=== PATIENT | male | born 1970 | race Caucasian/White ===

== ENCOUNTER 2019-08-24 11:07 | Inpatient (IN) ==
[2019-08-24] MEDS ORDERED: NS 1,000 ML IV ONE (11:40)
[2019-08-24 12:14] LABS: BASO# 0.04 X1000 (0.0-0.2); BASO% 0.3 % (0.0-0.8); EOS# 0.14 X1000 (0.0-0.7); HEMATOCRIT 45.6 % (42.0-52.0); HEMOGLOBIN 16.2 g/dL (14.0-18.0); IMM GRAN# 0.06 X1000 (0.0-0.04); IMM GRAN% 0.4 % (0.0-0.5); LYMPH# 2.46 X1000 (1.2-3.4); LYMPH% 17.2 % (20.5-51.1); MCH 28.1 PG (27-31); MCHC 35.5 g/dL (33-37); MCV 79.2 FL (81-99); MONO# 0.92 X1000 (0.11-0.59); MONO% 6.4 % (1.7-9.3); MPV 13.3 FL (7.4-10.4); NEUT# 10.67 X1000 (1.4-6.5); NEUT% 74.7 % (42.2-75.2); PLT 180 X1000 (130-400); RBC 5.76 XMIL (4.7-6.1); RDW 13.2 % (11.5-14.5); WBC 14.29 X1000 (4.8-10.8)
--- NOTE | 2019-08-24 12:21 | Diag Imaging Result Doc PS360 ---
EXAM: CHEST-PORTABLE INDICATION: chest pain TECHNIQUE: One view COMPARISON: 05/05/2016 FINDINGS: The lungs are grossly clear. There is no discrete pleural fluid collection or pneumothorax. There are stable median sternotomy wires. There has been interval placement of an implanted defibrillator. The cardiomediastinal silhouette and central vasculature are unremarkable, otherwise. IMPRESSION: No evidence of acute pathology by plain radiograph. Electronically signed by Garcia Garcia 08/24/2019 12:19 PM
[2019-08-24 12:46] LABS: ALBUMIN 4.1 g/dL (3.5-5.0); CALCIUM 9.8 mg/dL (8.8-10.2); CREATININE 1.3 mg/dL (0.7-1.2); POTASSIUM 4.3 mmol/L (3.5-5.1); TOTAL BILIRUBIN 0.34 mg/dL (0.20-1.00); TOTAL PROTEIN 6.1 g/dL (6.3-8.3)
[2019-08-24] MEDS ORDERED: HUMULIN R IV ONE (13:57)
--- NOTE | 2019-08-24 15:41 | PROVIDER DOCUMENTATION ---
This chart was entered by Pallavi Garcia Scribe, acting as scribe for Sohail Mondragon DO. HPI-Chest Pain - General Stated Complaint: CP Time Seen by Provider: 08/24/19 11:10 Source: RN/ Allergies/Adverse Reactions: Patient Allergies Allergy/AdvReac Type Severity Reaction Status Date / Time codeine AdvReac Unknown Verified 08/24/19 12:00 Home Medications: Home Medication List Medication Instructions Recorded Confirmed Last Taken Type Aspirin [[place] Aspirin EC] 81 mg PO DAILY 02/06/14 02/06/14 02/06/14 History Gemfibrozil 600 mg PO DAILY 02/06/14 02/06/14 02/06/14 History Lorazepam 0.5 mg PO DAILY 02/06/14 02/06/14 02/06/14 History Nitroglycerin 0.4 mg PO DIRECTED 02/06/14 02/06/14 Unknown History Carvedilol 25 mg PO BID #0 02/09/14 02/06/14 02/06/14 Rx Hydrocodone Bit/Acetaminophen 1 tab PO DAILY #0 02/09/14 02/06/14 02/06/14 Rx [Hydrocodon-Acetaminophen 5-325] Insulin Human NPH [Humulin N] 22 unit SUBQ BID #0 vial 02/09/14 Unknown Rx Insulin Human NPH [Humulin N] 25 unit SUBQ BID #0 vial 02/09/14 Unknown Rx Insulin Regular, Human [Humulin R] 6 unit SQ ACS #1 vial 02/09/14 Unknown Rx Lovastatin 20 mg PO QHS #0 tablet 02/09/14 Unknown Rx Metformin [Glucophage] 1,000 mg PO BID #0 02/09/14 02/06/14 02/06/14 Rx Nicotine Patch [Nicoderm Patch] 14 mg TD DAILY PRN PRN #0 02/09/14 Unknown Rx patch.td24 - History of Present Illness-CP Nature of Presenting Problem: 48 yom c/o substernal cp this am while driving to mother's house to eat breakfast. pain is sharp, radiating down L arm and to back./ pt had 1 episode of vomiting and nausea and mild sob. pt sts pain is 9/10 when first started and felt similar to prev [place]. pt took 3 nitro at home w/little relief. ems enroute gave pt 3 81 ASA and pain is 3/10. hx of cabg, pacer/defib and stent. pt still smokes 1.5 ppd, not taking ASA regular and in on anticoagulant, unsure of name. Location: reports: substernal Chest Pain Radiation: reports: arms (L), back Quality of Pain: reports: sharp Severity in ED: mild Onset/Duration: this morning Timing: improving Context/Activities at Onset: reports: light activity (driving to moms home) Modifying Factors: improves with: nothing Associated Symptoms: reports: nausea, shortness of breath, vomiting (x1) Nitro Today/Relief: 0.4 mg x 3, provided at home Aspirin Treatment Today: 81 mg x 3, provided by EMS Prior Chest Pain/Cardiac Workup: reports: heart attack Similar Symptoms Previously?: Yes Review of Systems - Adult - REVIEW OF SYSTEMS - ADULT Constitutional: reports: no symptoms reported. denies: chills, fever, fatique Eyes: reports: no symptoms reported Ears, Nose, Mouth & Throat: reports: no symptoms reported Cardiovascular: reports: see HPI, chest pain. denies: edema, irregular heart rate, orthopnea, palpitations, PND Respiratory: reports: see HPI, shortness of breath (mild). denies: dyspnea on exertion, pleurisy, wheezing Gastrointestinal: reports: see HPI, nausea, vomiting (x1). denies: abdominal pain, hematemesis, diarrhea Genitourinary: reports: no symptoms reported Musculoskeletal: reports: see HPI, bone pain (L arm pain associated w/cp), back pain (associated w/cp). denies: joint pain, joint swelling, neck pain Integumentary: reports: no symptoms reported Neurological: reports: no symptoms reported Psychiatric: reports: no symptoms reported Endocrine: reports: no symptoms reported Hematologic/Lymphatic: reports: no symptoms reported Allergic/Immunologic: reports: no symptoms reported All Other Systems: Reviewed and Negative Past History - Adult - PAST MEDICAL HISTORY-ADULT Review of Records: reports: Nursing Assessment Review, Medications Reviewed, Social history reviewed & non-contributory. Major Childhood Illnesses: reports: denies history Cardiovascular: reports: [place], pacemaker Respiratory: reports: sleep apnea Gastrointestinal: reports: denies history Obstetrical/Gynecological: reports: denies history Genitourinary: reports: denies history Musculoskeletal: reports: denies history Neurological: reports: denies history Endocrine/Immune: reports: Diabetes Other Conditions: reports: denies history - PRIOR SURGERIES/PROCEDURES Surgical/Procedure History: reports: CABG, cardiac stent, pacemaker - PRIOR HOSPITALIZATIONS Prior Hospitalizations: reports: for similar symptoms - IMMUNIZATION STATUS Childhood Immunizations: See Nurse Assessment Flu Vaccine: See Nurse Assessment - FAMILY HISTORY Family History: reviewed, not pertinent - SOCIAL HISTORY Smoking: cigarettes, greater than 1 pack/day Provider spent 3-5 mins advising pt. on dangers of tobacco.: Discussed manners to quit use, and f/u contacts for add'l counseling. Substance Use: none/never Physical Exam-General - PHYSICAL EXAM-ADULT Initial Vital Signs Reviewed: Yes - CONSTITUTIONAL General Appearance: alert, no apparent distress. negative: lethargic, slow to respond, obtunded - EYES Eyes: PERRL/EOMI - HEAD, EARS, NOSE, MOUTH & THROAT HENMT: normocephalic/atraumatic, moist mucous membranes - NECK Neck: non-tender, full range of motion, supple, normal inspection - RESPIRATORY Respiratory: chest non-tender, lungs clear, normal breath sounds, no pleuratic chest pain, no respiratory distress, no accessory muscle use. negative: accessory muscle use, crackles, rhonchi, wheezing - CARDIOVASCULAR Cardiovascular: normal peripheral pulses, regular rate, rhythm, no edema, no gallop, no JVD, no murmur. negative: JVD, tachycardia, extra beats - GASTROINTESTINAL (ABDOMEN) Abdominal Exam: normal bowel sounds, non tender, soft - MUSCULOSKELETAL Back Exam: normal inspection Extremity: normal range of motion, non-tender, normal inspection - SKIN Integumentary: normal color, normal turgor, warm/dry - NEUROLOGIC Neurologic: technician trainee II-XII nml as tested, grossly normal, no motor/sensory deficits - PSYCHIATRIC Psych/Mental Status: normal mood/affect, normal thought content, normal thought process, oriented x 3 - HEART Score HEART Score: History: Highly Suspicious HEART Score: ECG: Non-Specific Repolarization Disturbance/LBBB/PM HEART Score: Age: 45-65 Years HEART Score: Risk Factors for Atherosclerotic Disease: > or = 3 Risk Factors or History of Atherosclerotic Disease HEART Score: Troponin: < or = Normal Limit Total HEART Score:: 6 Progress - PLAN OF CARE/RESULTS Progress/Plan/Lab Results: Vital Signs - 8 hr 08/24/19 11:20 Temperature 98.3 F Pulse Rate 99 H Respiratory Rate 18 Blood Pressure 106/84 O2 Sat by Pulse Oximetry 98 08/24/19 13:54 Influenza Screen - Final Nasopharyngeal Laboratory Results - last 24 hr 08/24/19 08/24/19 08/24/19 11:40 11:40 11:40 WBC RBC Hgb Hct MCV MCH MCHC RDW Std Deviation Plt Count MPV Immature Gran % (Auto) Neut % (Auto) Lymph % (Auto) Blaine % (Auto) Eos % (Auto) Baso % (Auto) Immature Gran # (Auto) Neut # (Auto) Lymph # (Auto) Blaine # (Auto) Eos # (Auto) Baso # (Auto) Sodium 128 L Potassium 4.3 Chloride 89 L Carbon Dioxide 21 L Anion Gap 18 BUN 38 H Creatinine 1.3 H Estimated GFR/1.73 m2 59 BUN/Creatinine Ratio 29 Glucose 534 H* Calculated Osmolality 290 Calcium 9.8 Total Bilirubin 0.34 AST 10 ALT 8 L Alkaline Phosphatase 105 Creatine Kinase 50 Troponin T High Sens 77 H Num-M-Qjxhoehbfeq Pept 1394 H Total Protein 6.1 L Albumin 4.1 Globulin 2.0 Albumin/Globulin Ratio 2.0 08/24/19 11:40 WBC 14.29 H RBC 5.76 Hgb 16.2 Hct 45.6 MCV 79.2 L MCH 28.1 MCHC 35.5 RDW Std Deviation 13.2 Plt Count 180 MPV 13.3 H Immature Gran % (Auto) 0.4 Neut % (Auto) 74.7 Lymph % (Auto) 17.2 L Blaine % (Auto) 6.4 Eos % (Auto) 1.0 Baso % (Auto) 0.3 Immature Gran # (Auto) 0.06 H Neut # (Auto) 10.67 H Lymph # (Auto) 2.46 Blaine # (Auto) 0.92 H Eos # (Auto) 0.14 Baso # (Auto) 0.04 Sodium Potassium Chloride Carbon Dioxide Anion Gap BUN Creatinine Estimated GFR/1.73 m2 BUN/Creatinine Ratio Glucose Calculated Osmolality Calcium Total Bilirubin AST ALT Alkaline Phosphatase Creatine Kinase Troponin T High Sens [id number] Pept Total Protein Albumin Globulin Albumin/Globulin Ratio Orders Category Date Time Status Finger Stick Blood Sugar (ED) DIRECTED Care 08/24/19 15:38 Active Isolation [Isolation Precautions Setup] NOW Care 08/24/19 13:41 Active NEWS Score 2-4:Order NEWS Lactate Series NOW Care 08/24/19 11:53 Active CHEST-PORTABLE [RAD] Stat Exams 08/24/19 11:23 Completed CBC WITH ELECTRONIC DIFF [HEME] Stat Lab 08/24/19 11:40 Completed CK PROFILE [SP CHEM] Stat Lab 08/24/19 11:40 Completed COMPREHENSIVE METABOLIC PANEL [CHEM] Stat Lab 08/24/19 11:40 Completed INFLUENZA SCREEN A/B Stat Lab 08/24/19 13:54 Completed LACTATE, PLASMA [CHEM] Lab 08/24/19 14:45 Uncollected LACTATE, PLASMA [CHEM] Lab 08/24/19 17:45 Uncollected LACTATE, PLASMA [CHEM] Lab 08/24/19 20:45 Uncollected PRO B-NATRIURETIC PEPTIDE Stat Lab 08/24/19 11:40 Completed TROPONIN T HIGH SENSITIVITY Stat Lab 08/24/19 11:40 Completed TROPONIN T HIGH SENSITIVITY Stat Lab 08/24/19 15:15 Received 0.9% Sodium Chloride Inj [Ns] 1,000 ml Med 08/24/19 11:40 Active IV 125 mls/hr Insulin Human Regular [Humulin R] Med 08/24/19 13:57 Discontinued 6 unit IV NOW ONE EKG [EKG] Stat Ther 08/24/19 11:30 Ordered EKG [EKG] Stat Ther 08/24/19 13:45 Ordered Result Diagrams: 08/24/19 11:40 08/24/19 11:40 - REASSESSMENT Reassessment #1 Time Reassessed: 14:14 Status: improving (pain is 0/10) - EKG 1 Time of EKG reading by physician:: 11:31 EKG Read and Signed by:: Sohail Mondragon EKG Interpretation (*Must complete 3 of following elements*): Abnormal Rate: 102 (possible left atrial enlargement ) Rhythm: Sinus Tachycardia [place]: normal QRS: LVH (w/repolarization abnormality) MS Interval: normal ST Wave: normal Comments: Lateral ischemic changes. No reciprocal changes inferiorally 2 Time of EKG reading by physician:: 11:32 EKG Read and Signed by:: Sohail Mondragon EKG Interpretation (*Must complete 3 of following elements*): Abnormal Rate: 102 Rhythm: Sinus Tachycardia Prior EKG Comparison: unchanged from prior - XRAY 1 XRAY Study: Chest Impression: See EMR Report ( EXAM: CHEST-PORTABLE INDICATION: chest pain TECHNIQUE: One view COMPARISON: 05/05/2016 FINDINGS: The lungs are grossly clear. There is no discrete pleural fluid collection or pneumothorax. There are stable median sternotomy wires. There has been interval placement of an implanted defibrillator. The cardiomediastinal silhouette and central vasculature are unremarkable, otherwise. IMPRESSION: No evidence of acute pathology by plain radiograph. Electronically signed by Garcia Garcia 08/24/2019 12:19 PM 08/24/19 1219) - CONSULTS/PCP/HOSPITALIST Notification #1 *Consult/PCP/Hospitalist*: Dr. Bean Time Discussed: 15:28 Consult Disposition: other (call hospitalist to admit) #2 Consult: Marion Time Discussed: 15:37 Consult Disposition: Will see in ED, Admit Departure - Departure Date of Disposition Decision: 08/24/19 Time of Disposition Decision: 15:40 DIAGNOSIS: Hyperglycemia Chest pain Qualifiers: Chest pain type: chest pain on breathing Qualified Code(s): R07.1 - Chest pain on breathing Disposition: ADMITTED INPATIENT 09 Certified Medical Emergency: Emergent Condition: Stable Referrals and Follow-Ups: Fernanda Viveros [Primary Care Provider] - - Critical Care Note This patient required my direct & personal management of CC.: No Attestation - Physician/ CLEMENTINA Attestation Patient care was provided by Advanced Practice Provider:: No The physician spent face to face time with patient:: Yes Advanced Practice Provider documentation review:: Supervising physician onsite and consulted in the evaluation and care of this patient. The physician did have a face to face encounter with the patient. This chart was documented by the indicated scribe, (Pallavi Garcia Scribe) and accurately reflects the services I performed and decisions made by me, Sohail Mondragon DO, as attested by the provider's signature.
[2019-08-24] MEDS ORDERED: TYLENOL PO PRN (16:02)
[2019-08-24] MEDS ORDERED: NITROGLYCERIN SL PRN (16:02)
[2019-08-24] MEDS ORDERED: MORPHINE IV PRN (16:02)
[2019-08-24] MEDS ORDERED: ZOFRAN IV PRN (16:02)
[2019-08-24] MEDS ORDERED: ATIVAN PO PRN (16:07)
--- NOTE | 2019-08-24 16:31 | HISTORY AND PHYSICAL ---
HISTORY OF PRESENT ILLNESS: Mr. Zhu is a 48-year-old who presented stating that this morning he started getting chest pain. He pointed kind of to the right of the midline. He said it was more sharp in nature, but it radiated to his left shoulder and left arm. He did say he felt a little bit of subjective dyspnea with it and he seemed to have some palpitations. MEDICAL HISTORY: 1. He does have a history of coronary artery disease. He is status post CABG bypass and he has had several stents, by his report. He also has a pacemaker and it sounds like it was a biventricular pacemaker for congestive heart failure, but he is not sure. 2. History of diabetes mellitus type 2 under poor control. I saw where he had a hemoglobin A1c, at one point it was 18. 3. Hypertension. 4. Hyperlipidemia. SURGICAL HISTORY: CABG bypass surgery and pacemaker placement. He has had PCI with stents placed. SOCIAL HISTORY: Two-pack a day history of smoking for over 20 years. He reports that he did quit alcohol. ALLERGIES: Codeine. FAMILY HISTORY: Positive for coronary artery disease and heart disease. REVIEW OF SYSTEMS: Constitutional: He did not report weight gain or loss. No fever or chills. HEENT: No change in visual or hearing acuity. No adenopathy or neck pain. No recent head trauma. Respiratory: No increased work of breathing or dyspnea. Cardiovascular: No chest pain or tachy palpitations until this morning with his chest pain as described above. GI and : No gross hematochezia. No gross hematuria, dysuria, or change in his bowels Musculoskeletal/Neurologic: No focal complaints Endocrinologic/Hematologic: No significant history. PHYSICAL EXAMINATION: VITAL SIGNS: In the emergency room temperature 98.3 degrees, pulse 99, respirations 18, blood pressure 106/84. EYES: Pupils are equal and round. LUNGS: Clear in all lung gibbs. CARDIOVASCULAR: Regular rhythm and rate without murmur or S3. ABDOMEN: Soft and nondistended. VASCULAR/MUSCULOSKELETAL/EXTREMITIES: His carotid, radial, and femoral pulses are 2+ and symmetrical. CVP less than 6 cm. No distended neck veins. No sign of pedal edema. Neck was supple. No adenopathy appreciated. No pedal edema. LABORATORY DATA: White count 14,290, hematocrit 45, platelet count 180,000. Sodium 128, potassium 4.3, chloride 89, BUN 38, and creatinine 1.3. Blood sugar 534, AST was 10, ALT was 8, alkaline phosphatase 105, albumin 4.1. IMAGING: His chest x-ray reported as no evidence of acute pathology. No sign of infiltrates. There is no discrete pleural fluid collection or pneumothorax. He has stable median sternotomy wires. He has an implantable defibrillator/pacemaker. Looking back to see, he had an echocardiogram done on 03/13/2018. The left ventricle was dilated. Severely reduced systolic function. Estimated ejection fraction 30% to 35% with global hypokinesis. There is diastolic dysfunction. Mild mitral regurgitation, tricuspid regurgitation which is mild, and pulmonic valve was normal. ASSESSMENT AND PLAN: 1. History of coronary artery disease status post coronary artery bypass graft. He has, I think, a defibrillator/ pacemaker. He does not report any discharge of the defibrillator. His cardiac enzymes were not elevated on presentation. His electrocardiogram showed sinus tachycardia, possible left atrial enlargement and some borderline left ventricular hypertrophy with repolarization abnormality, but no definitive ST-segment changes. He does have Q-waves in the inferior leads suggestive of inferior scar and of course his T-wave inversion is nonspecific. It could be with left ventricular hypertrophy. It could also be ischemia. Will check serial cardiac enzymes. Dr. Bean is aware. He will be consulted for Cardiology. We will get serial electrocardiograms as well. We will check both the troponin and CK. We will check his thyroid. 2. Diabetes mellitus. It looks like it is poorly controlled. Check hemoglobin A1c. Put him on a sliding scale. Put him on diabetic diet. 3. It looks like he has a history of chronic obstructive pulmonary disease. 4. Congestive heart failure with reduced ejection fraction. I think he has a biventricular sequential pacemaker and defibrillator. 5. History of hypertension. 6. History of hyperlipidemia. cc: Wolf Turner MD
--- NOTE | 2019-08-24 17:23 | EKG Report ---
Test Performed on : 08/24/2019 11:31:27 AM Test Reason : CP Blood Pressure : / mmHG Vent. Rate : 102 BPM Atrial Rate : 102 BPM P-R Int : 156 ms QRS Dur : 108 ms QT Int : 354 ms P-R-T Axes : 063 043 128 degrees QTc Int : 461 ms Sinus tachycardia. Possible Left atrial enlargement Left ventricular hypertrophy with repolarization abnormality Inferior infarct (cited on or before 06-FEB-2014) ACUTE HI / STEMI Consider right ventricular involvement in acute inferior infarct Abnormal ECG When compared with ECG of 06-FEB-2014 19:53, QRS axis shifted right ST now depressed in Lateral leads T wave inversion now evident in Lateral leads Unconfirmed Result
--- NOTE | 2019-08-24 17:23 | EKG Report ---
Test Performed on : 08/24/2019 11:32:52 AM Test Reason : CP Blood Pressure : / mmHG Vent. Rate : 102 BPM Atrial Rate : 102 BPM P-R Int : 154 ms QRS Dur : 108 ms QT Int : 354 ms P-R-T Axes : 062 037 123 degrees QTc Int : 461 ms Sinus tachycardia. Possible Left atrial enlargement Left ventricular hypertrophy with repolarization abnormality Inferior infarct (cited on or before 06-FEB-2014) ACUTE NE / STEMI Consider right ventricular involvement in acute inferior infarct Abnormal ECG When compared with ECG of 24-AUG-2019 11:31, (Unconfirmed) No significant change was found Unconfirmed Result
[2019-08-24] MEDS: NICODERM PATCH TD SCH (18:38)
[2019-08-24] MEDS: LOVENOX SUBQ SCH (18:38)
[2019-08-24] MEDS: GLUCOPHAGE PO SCH (18:52)
[2019-08-24] MEDS: HUMULIN R SUBQ SCH ×2 (19:15→23:04)
[2019-08-24] MEDS ORDERED: MEVACOR PO SCH (21:00)
[2019-08-24] MEDS: COREG PO SCH (22:57)
[2019-08-24] MEDS: HUMULIN N SUBQ SCH (23:03)
[2019-08-25] MEDS: PRILOSEC PO SCH (06:15)
[2019-08-25] MEDS: HUMULIN R SUBQ SCH ×4 (06:16→22:54)
[2019-08-25 07:04] LABS: BASO# 0.06 X1000 (0.0-0.2); BASO% 0.5 % (0.0-0.8); EOS# 0.19 X1000 (0.0-0.7); EOS% 1.5 % (0.0-10.0); HEMATOCRIT 42.4 % (42.0-52.0); HEMOGLOBIN 14.9 g/dL (14.0-18.0); IMM GRAN# 0.06 X1000 (0.0-0.04); IMM GRAN% 0.5 % (0.0-0.5); LYMPH# 2.93 X1000 (1.2-3.4); LYMPH% 23.3 % (20.5-51.1); MCH 28.5 PG (27-31); MCHC 35.1 g/dL (33-37); MCV 81.1 FL (81-99); MONO# 0.77 X1000 (0.11-0.59); MONO% 6.1 % (1.7-9.3); MPV 13.2 FL (7.4-10.4); NEUT# 8.55 X1000 (1.4-6.5); NEUT% 68.1 % (42.2-75.2); PLT 163 X1000 (130-400); RBC 5.23 XMIL (4.7-6.1); RDW 13.4 % (11.5-14.5); WBC 12.56 X1000 (4.8-10.8)
--- NOTE | 2019-08-25 07:30 | EKG Report ---
Test Performed on : 08/25/2019 07:11:34 AM Test Reason : chest pain Blood Pressure : / mmHG Vent. Rate : 082 BPM Atrial Rate : 082 BPM P-R Int : 172 ms QRS Dur : 106 ms QT Int : 392 ms P-R-T Axes : 062 019 136 degrees QTc Int : 457 ms Normal sinus rhythm. Possible Left atrial enlargement Left ventricular hypertrophy with repolarization abnormality Inferior infarct (cited on or before 06-FEB-2014) ACUTE CA / STEMI Consider right ventricular involvement in acute inferior infarct Abnormal ECG When compared with ECG of 24-AUG-2019 11:32, (Unconfirmed) No significant change was found Confirmed by Cain Latham MD ([id number]) on 08/26/2019 1:49:45 PM
[2019-08-25 07:38] LABS: ALB/GLOB RATIO 1.5; ALBUMIN 3.4 g/dL (3.5-5.0); CALCIUM 9.1 mg/dL (8.8-10.2); CREATININE 1.3 mg/dL (0.7-1.2); MAGNESIUM 2.1 mg/dL (1.5-2.7); TOTAL BILIRUBIN 0.19 mg/dL (0.20-1.00); TOTAL PROTEIN 5.6 g/dL (6.3-8.3)
[2019-08-25 07:40] LABS: FREE T4 1.65 ng/dL (0.93-1.70); TSH 0.73 uIUmL (0.27-4.20)
--- NOTE | 2019-08-25 07:53 | Diag Imaging Result Doc PS360 ---
EXAM: CHEST-PORTABLE HISTORY: MD Ordered TECHNIQUE: Single view COMPARISON: 08/24/2019 FINDINGS: The lungs are well expanded. The heart is not enlarged. There is a left-sided pacemaker. Sternal wires are present. The vessels are not distended. There are no infiltrates. No effusion identified. IMPRESSION: Negative exam. Electronically signed by Lukas Acuña 08/25/2019 7:50 AM
[2019-08-25] MEDS ORDERED: ASPIRIN PO SCH (09:00)
[2019-08-25] MEDS: NICODERM PATCH TD SCH (09:19)
[2019-08-25] MEDS: COREG PO SCH ×2 (09:20→20:27)
[2019-08-25] MEDS: GLUCOPHAGE PO SCH ×2 (09:20→16:33)
[2019-08-25] MEDS: HUMULIN N SUBQ SCH ×2 (09:21→20:28)
--- NOTE | 2019-08-25 11:19 | CARDIOLOGY CONSULTATION ---
DATE: 08/25/2019 CHIEF COMPLAINT ON PRESENTATION: Chest pain. HISTORY OF PRESENT ILLNESS: Mr. Zhu is a 48-year-old, white male with a history of an ischemic cardiomyopathy normally followed by Dr. Bean with last visit in May of 2019. He presented with complaints of a stabbing chest pain that occurred at rest in the right mid chest along the right sternal border. This was nonexertional and occurred while he was driving. It lasted for around 30 minutes and was not associated with any other symptoms. He reports compliance with his medications, but his medication list differs drastically from that which was noted in the office in May of 2019. He denies any orthopnea. No recent fevers. No recent issues with shortness of breath. PAST MEDICAL HISTORY: 1. Coronary disease with history of coronary bypass grafting. He has a history of a VARGHESE to the LAD and a vein graft to the PDA. His last cardiac cath was in March of 2019. This demonstrated no disease in the left main. The LAD had heavily calcified 90% disease with competitive flow in the distal vessel. Distal vessel was very small and diffusely diseased with an apical lesion of 70%. There is a diagonal that was moderate size arising beyond the 90% stenosis. There was ostial disease of 70%. The circumflex was large and dominant. Mild luminal irregularities. There was an OM1 that was moderate size, long, calcified, mid stenosis of 60 to 70 percent. OM2 was small with proximal diffuse disease of 60 to 70 percent. The PDA was totally occluded. RCA was occluded 100%. Limited LAD was smooth and widely patent. Ostial anastomosis had a narrowing around 50%. The vein graft to the PDA was known to be 100% occluded. Ejection fraction on that study was less than 15%. 2. Ischemic cardiomyopathy. EF of less than 15% by echocardiogram in March of 2019. 3. AICD implantation. Dual-chamber device implanted in May of 2018. 4. Hypertension. 5. Hyperlipidemia. 6. Diabetes. 7. Tobacco abuse. 8. Chronic leg pain. 9. Sleep apnea. SOCIAL HISTORY: He continues to smoke. Has 2 pack per day history for over 20 years. No alcohol. FAMILY HISTORY: Significant for hypertension. REVIEW OF SYSTEMS: A 10 system review of systems is negative. PHYSICAL EXAMINATION: Vital Signs: He is afebrile. His heart rate is 81. His blood pressure is 104/80. General: He is no acute distress. HEENT: Oropharynx is moist. Poor dentition. Eye examination is pink conjunctivae, white sclerae. Neck: Examination shows no obvious thyromegaly or thyroid tenderness. Cardiovascular: He sounds to be in a regular rate and rhythm. He has no murmurs. He has no S3. No lower extremity edema. Chest: Clear bilaterally. He has no increased work of breathing. Abdomen: Soft, nontender, nondistended. No obvious organomegaly. Skin: Exam is warm and dry throughout without any rashes. Neurological: Moving all extremities well. No lateralizing deficits. PERTINENT DATA: His chest x-ray shows no evidence of infiltrates. His EKG tracing reviewed by me on the at 1132 hours reveals sinus rhythm. Inferior infarct. Lateral ST depression consistent with previous old EKG. Evidence for LVH. Next EKG tracing reviewed by me at 1131 hours on the again was consistent with the already-mentioned tracing and final EKG on the at 0711 hours was consistent with previous EKG tracings. All tracings reviewed by me. White count originally was 14.2 on presentation, 12.5 presently. Hematocrit 42, platelet count is 163. Sodium is 135, BUN 39, creatinine is 1.3, potassium is 4.0. His troponins have been flat; initial was 77, subsequent were 78, 76, 82 and 69. His proBNP was 1394, his LDL was 71, TSH 0.73. ASSESSMENT: Mr. Zhu is a 48-year-old gentleman who presented with atypical chest pain. PLAN: We will make adjustments in his medications. His med list is significantly different than previous. His last cardiac catheterization demonstrated severe disease that was treated medically. He is not presently on dual antianginal therapy based on his home list. He is also not on an ARB. He had been put on Entresto at last visit by Dr. Bean. Presently, we will start him on losartan at 12.5 b.i.d. Re-initiate the Ranexa. We will stop his lovastatin and put him on high-intensity statin therapy in the form of atorvastatin 40 mg at bedtime. Continue him on aspirin. Restart the clopidogrel that he was previously on. For now, we will treat the patient medically. cc: Gee Otero MD
[2019-08-25] MEDS: COZAAR PO SCH ×2 (11:47→20:27)
[2019-08-25] MEDS: LOPID PO SCH (11:48)
[2019-08-25] MEDS: RANEXA PO SCH ×2 (11:48→20:27)
[2019-08-25] MEDS: PLAVIX PO SCH (11:48)
--- NOTE | 2019-08-25 12:00 | PROGRESS NOTE ---
DATE: 08/25/2019 SUBJECTIVE: Mr. Zhu has not had any further chest pain. He is comfortably breathing comfortably remains afebrile. PHYSICAL EXAMINATION: Vital signs: Afebrile. Temperature 98 degrees, pulse 80, respirations 20, blood pressure 104/80. HEENT: Pupils are equal round. Lungs: Clear in all lung gibbs. Cardiovascular: Regular rate without murmur or S3. ASSESSMENT AND PLAN: 1. Coronary artery disease, history of coronary artery bypass grafting. History of left internal mammary artery to the left anterior descending and vein graft to the posterior descending artery. Last heart catheterization was in March 2019, demonstrating no disease to left main. Left anterior descending had heavy calcified 90% disease with competitive flow in the distal vessels. Distal vessel was very small and diffusely diseased with an apical lesion of 70%. There was a diagonal that was moderate size arising beyond 90% stenosis. There was an ostial disease of 70%. Circumflex was large and dominant. Mild luminal irregularities. There is an oblique marginal #1 of moderate size, calcified and mid stenosis 60% to 70%. Oblique marginal #2 was small with proximal diffuse disease 60% to 70%. The posterior descending artery was totally occluded. Right coronary artery was occluded 100%. Limited left anterior descending was smooth and widely patent. Ostial anastomosis had a narrowing around 50%. The vein graft to the posterior descending artery was known to be 100% occluded. Ejection fraction was 15%. 2. Ischemic cardiomyopathy ejection fraction 15%. Volume status appears pretty good. Compensation appears pretty good at this point. This 15% was measured by echocardiogram March 2019. 3. AICD implantation dual-chamber device implanted May 2018. 4. Hypertension. 5. Hyperlipidemia. 6. Diabetes mellitus type 2. 7. Tobacco use. 8. Chronic leg pain. 9. Sleep apnea. Note his sugars were high and I do not think his diabetes is very well controlled. He presented with atypical chest pain as noted above. Previous heart catheterization demonstrated severe disease that was treated medically and he is on dual antianginal therapy. I am not sure how well he is taking it. He is not on an ARB. He has been put on Entresto on last visit per Dr. Bean. So, we will start him on losartan 12.5 mg b.i.d. and reinitiate his Ranexa. Dr. Otero is going to stop his lovastatin and put him on a high-intensity statin therapy with atorvastatin 40 mg at bedtime and restart his Plavix. cc: Wolf Turner MD
[2019-08-25] MEDS: LOVENOX SUBQ SCH (16:33)
[2019-08-25] MEDS ORDERED: LIPITOR PO SCH (21:00)
[2019-08-26] MEDS: HUMULIN R SUBQ SCH (06:15)
[2019-08-26] MEDS: PRILOSEC PO SCH (06:15)
[2019-08-26 06:46] LABS: BASO# 0.06 X1000 (0.0-0.2); BASO% 0.6 % (0.0-0.8); EOS# 0.19 X1000 (0.0-0.7); EOS% 1.8 % (0.0-10.0); HEMATOCRIT 43.9 % (42.0-52.0); HEMOGLOBIN 15.2 g/dL (14.0-18.0); IMM GRAN# 0.05 X1000 (0.0-0.04); IMM GRAN% 0.5 % (0.0-0.5); LYMPH# 2.42 X1000 (1.2-3.4); LYMPH% 23.4 % (20.5-51.1); MCH 28.1 PG (27-31); MCHC 34.6 g/dL (33-37); MCV 81.3 FL (81-99); MONO# 0.77 X1000 (0.11-0.59); MONO% 7.4 % (1.7-9.3); NEUT# 6.87 X1000 (1.4-6.5); NEUT% 66.3 % (42.2-75.2); PLT 167 X1000 (130-400); RDW 13.4 % (11.5-14.5); WBC 10.36 X1000 (4.8-10.8)
[2019-08-26 07:22] LABS: AGAP 13; ALB/GLOB RATIO 1.9; ALBUMIN 3.7 g/dL (3.5-5.0); ALKALINE PHOSPHATASE 76 U/L (32-122); BUN 34 mg/dL (8-22); CALCIUM 8.9 mg/dL (8.8-10.2); CHLORIDE 98 mmol/L (98-107); COSMO 280; ESTIMATED GFR > 60; GLUCOSE 104 mg/dL (70-104); GOT 12 U/L (10-34); GPT 8 U/L (10-44); MAGNESIUM 1.9 mg/dL (1.5-2.7); POTASSIUM 3.6 mmol/L (3.5-5.1); SODIUM 136 mmol/L (136-145); TCO2 25 mmol/L (25-35); TOTAL BILIRUBIN 0.34 mg/dL (0.20-1.00); TOTAL PROTEIN 5.7 g/dL (6.3-8.3)
[2019-08-26 07:30] VITALS: BP 118/77
[2019-08-26] MEDS: GLUCOPHAGE PO SCH (08:42)
[2019-08-26] MEDS: PLAVIX PO SCH (08:42)
[2019-08-26] MEDS: LOPID PO SCH (08:42)
[2019-08-26] MEDS: COZAAR PO SCH (08:43)
[2019-08-26] MEDS: COREG PO SCH (08:43)
[2019-08-26] MEDS: RANEXA PO SCH (08:43)
[2019-08-26] MEDS: NICODERM PATCH TD SCH (08:44)
[2019-08-26] MEDS: HUMULIN N SUBQ SCH (08:59)
[2019-08-26] MEDS ORDERED: ASPIRIN PO SCH ×2 (09:00)
--- NOTE | 2019-08-26 14:52 | DISCHARGE SUMMARY ---
ADMISSION DATE: 08/24/2019 DISCHARGE DATE: 08/26/2019 DISCHARGE DIAGNOSIS: 1. Atypical chest pain in a patient with a history of coronary artery disease and coronary bypass grafting. 2. History of ischemic cardiomyopathy with an ejection fraction of less than 15% and AICD implantation. 3. Hypertension. 4. Hyperlipidemia. 5. Uncontrolled type 2 diabetes. 6. Tobacco abuse. 7. Chronic leg pain. 8. Sleep apnea. PROCEDURES PERFORMED: 1. Chest x-ray dated 08/24/2019. Impression: No evidence of acute pathology by plain radiograph. 2. Chest x-ray dated 08/25/2019. Impression: Negative exam. CONSULT: Cardiology Department, Dr. Gee Otero. HOSPITAL COURSE: A 48-year-old male with multiple comorbidities including coronary artery disease, status post CABG, ischemic cardiomyopathy with AICD implantation, hypertension, hyperlipidemia, uncontrolled diabetes, tobacco abuse, chronic leg pain, and sleep apnea, admitted on 08/24/2019. Presented to the emergency department complaining of chest pain, in the right of the midline, sharp, radiated to the left shoulder and arm with subjective dyspnea and palpitations. Laboratory showed some elevated white blood cell count which was probably reactive. His glucose level was really high at 534 with pseudohyponatremia. His hemoglobin A1c is above 20 and his troponins were negative x5. When I asked the patient about his medications, he told me that he has not been taking his medications for some weeks, probably a month, because he was not able to get the prescription from his primary care doctor. On the other hand, it looks like when we check the medication for his heart condition, he was not taking his medications as prescribed. Cardiology department evaluated this patient. They put him back on the right medications. Apparently, he was placed on Entresto at the last visit to his roller operator, Dr. Bean, but at this moment, he has been started on losartan, Ranexa, and Lipitor. The patient today is completely asymptomatic. His vital signs are stable. Laboratory stable as well. He desires to go home. He will see Dr. Bean on 09/15/2019 at 9:30 a.m. OBJECTIVE: Vital Signs: Temperature 97.6 degrees, pulse 78, respiratory rate 16, blood pressure 118/77, oxygen saturation 100% on room air. HEENT: Head normocephalic. No trauma. PERRLA. Neck: Supple. No JVD. No masses. Central trachea. Chest: Clear to auscultation. No wheezing. No rales. He has an AICD on the left upper thoracic area. Abdomen: Soft, nontender, nondistended. No hepatosplenomegaly. Extremities: No edema, no clubbing, no cyanosis. Neurological: Patient is awake and alert. He is oriented. No focal deficits. LABORATORY DATA: WBC 10, hemoglobin 15.2, hematocrit 43.9, platelet 167,000. Sodium 136, potassium 3.6, chloride 98, bicarbonate 25, BUN 34, creatinine 1, glucose 104, calcium 8.9. DISCHARGE MEDICATIONS: 1. Aspirin 81 mg p.o. daily. 2. Atorvastatin 40 mg p.o. at bedtime. 3. Carvedilol 25 mg p.o. b.i.d. 4. Plavix 75 mg p.o. daily. 5. Gemfibrozil 600 mg p.o. daily. 6. Insulin NPH 22 units subcutaneously b.i.d. 7. Insulin regular 6 units subcu before meals. 8. Lorazepam 0.5 mg p.o. q.12 hours as needed. 9. Losartan 12.5 mg p.o. b.i.d. 10. Metformin 1000 mg p.o. b.i.d. 11. Nitroglycerin 0.4 mg sublingual every 5 minutes as needed for chest pain. 12. Ranexa 500 mg p.o. b.i.d. I had a really large conversation with this patient about diabetes, tobacco abuse, and the way he needs to take his medications. He is noncompliant and apparently he stopped taking all of his medications or most of his medications because he did not get the prescription from his primary care doctor. cc: Saeed Castillo MD
== END 2019-08-26 12:42 | disposition home health service (06) | DRG 313 ==
LOC: SUPCPDRO → ED 11:07 → EDIPHOLD 16:14 → SUATTDRO 16:14 → 3N 19:16
PROVIDERS: ATTEND Internal Medicine